=== PATIENT | female | born 1960 | race Asian ===

== ENCOUNTER 2019-06-13 06:00 | Day surgery (SDC) | payer OTHER ==
[~2019-06-13] VITALS: Ht 162.7 cm; Wt 48.2 kg
[~2019-06-13 06:00] MED LIST: GABA-529 PO; SODIUM CHLORIDE 0.9% 1,000 ML IV ONE
[2019-06-13] MEDS ORDERED: SODIUM CHLORIDE 0.9% 1,000 ML IV ONE (06:30)
[2019-06-13] MEDS ORDERED: MIDAZOLAM HCL 2 MG/2 ML VIAL ONE (07:55)
[2019-06-13] MEDS ORDERED: FentaNYL CITRATE-PF 100 MCG/2 ML VIAL ONE (07:55)
[2019-06-13] MEDS ORDERED: MethylPREDNISolone SOD SUCC 125 MG/2 ML VIAL IVP ONE (09:15)
[2019-06-13] MEDS ORDERED: BENZOCAINE 20% 50 MCG/SPRAY 57 GM TP ONE (12:00)
[2019-06-13] MEDS ORDERED: LIDOCAINE 4% 50 ML SOLUTION TP ONE (12:00)
[2019-06-13] MEDS ORDERED: LIDOCAINE 2% 30 ML JELLY TP ONE (12:00)
[2019-06-13] MEDS ORDERED: ALBUTEROL SULFATE 2.5 MG/0.5 ML NEB SOLUTION NEB ONE (12:00)
[2019-06-13] MEDS ORDERED: OXYGEN THERAPY IH SCH (20:00)
== END 2019-06-13 10:40 | disposition home or self-care (01) ==
LOC: SURGERY 06:00
PROVIDERS: ATTEND Internal Medicine Critical Care Medicine
DX: J38.4 Edema of larynx (principal); J45.909 Unspecified asthma, uncomplicated; J98.8 Other specified respiratory disorders; F17.210 Nicotine dependence, cigarettes, uncomplicated; Z86.11 Personal history of tuberculosis; Z79.899 Other long term (current) drug therapy; Z98.890 Other specified postprocedural states
CPT/HCPCS: 31623; 31624; 71045; 87015; 87070; 87101; 87205; 87206; 87220; 88108; 88312; J2250; J2930; J3010; J7030